=== PATIENT | male | born 1985 | race Caucasian/White ===

== ENCOUNTER 2017-08-12 07:51 | Emergency (ER) | payer OTHER ==
[~2017-08-12] VITALS: Ht 177.8 cm; Wt 88.5 kg
[2017-08-12 08:02] VITALS: Ht 177.8 cm; Wt 88.5 kg
[2017-08-12 09:31] VITALS: BP 138/89
== END 2017-08-12 10:22 | disposition home or self-care (01) ==
LOC: ED 07:51
DX: J20.9 Acute bronchitis, unspecified (principal); F17.210 Nicotine dependence, cigarettes, uncomplicated; Z71.6 Tobacco abuse counseling
CPT/HCPCS: 99406